=== PATIENT | female | born 1965 | race Caucasian/White ===

== ENCOUNTER 2019-06-21 11:58 | Outpatient (REF) | payer BC, SELFPAY ==
[2019-06-21 20:44] LABS: Anion Gap 13.9 mmol/L (3-11); BUN 6 mg/dL (7-18); CO2 25.1 mmol/L (21.0-32.0); CREATININE 0.58 mg/dL (0.55-1.02); Calcium 9.5 mg/dL (8.5-10.1); Calculated LDL 82 mg/dL (<100); Chloride 103 mmol/L (98-107); Cholesterol 225 mg/dL (<200); Glucose 83 mg/dL (74-106); HDL Cholesterol 106 mg/dL (40-60); Potassium 4.2 mmol/L (3.5-5.1); Sodium 142 mmol/L (136-145); Triglyceride 186 mg/dL (<150)
== END 2019-06-21 12:18 ==
LOC: NCHCN 11:58
PROVIDERS: PCP Internal Medicine; Visit Provider Internal Medicine
DX: R03.0 Elevated blood-pressure reading, without diagnosis of hypertension (principal); Z13.220 Encounter for screening for lipoid disorders
CPT/HCPCS: 80048; 80061

== ENCOUNTER 2019-06-27 16:57 | Outpatient (REF) | payer BC, SELFPAY ==
--- NOTE | 2019-06-27 16:10 | PAPFT_PTH ---
PATIENT: SAMANTHA HIDALGO LOC: [facility]#:[id number] AGE/SX: 53/F ROOM: RE06/27/[address]: Tammy Patino : 1965 BED: DIS: 06/27/2019 SPEC #: [id number] RECD: 06/28/19 12:59 STATUS: MABEL REQ #: [id number] RAMILA: 06/27/19 16:[address]: Tammy Patino DEPT: [facility] Cytology RECD BY: Anita Moncada ENTERED: 06/28/19 12:59 SP TYPE: PAPFT OTHR DR: Ed Naranjo Tissues: 1 - CX/ENDOCX FOR PAP SMEARS Procedures: PAP THIN PREP/[facility] Screening HPV DNA PROBE Comments: [id number]
== END 2019-06-27 17:17 ==
LOC: NCHCN 16:57
PROVIDERS: PCP Internal Medicine; Visit Provider Internal Medicine
DX: Z00.00 Encounter for general adult medical examination without abnormal findings (principal); Z12.4 Encounter for screening for malignant neoplasm of cervix; Z11.51 Encounter for screening for human papillomavirus (HPV)
CPT/HCPCS: 88142; 87624

== ENCOUNTER 2024-11-25 16:24 | Outpatient (REF) | payer MEDICAID, SELFPAY ==
[2024-11-25 21:46] LABS: HCT 40.8 % (36.0-46.0); HGB 13.5 g/dL (11.2-15.7); MCH 31.9 pg (27.0-33.0); MCHC 33.1 % (32.0-36.0); MCV 97 fL (80-95); MPV 10.8 fL (8.0-11.0); Platelet Count 323 10^3/uL (130-400); RBC 4.23 10^6/uL (3.93-5.22); RDW 13.2 % (11.7-14.6); RDW-SD 46.0 fL; WBC 8.55 10^3/uL (4.4-10.8)
[2024-11-25 22:02] LABS: ALT 27 U/L (14-59); AST 24 U/L (15-37); Albumin 4.3 g/dL (3.4-5.0); Alkaline Phosphatase 81 U/L (46-116); Anion Gap 8.4 mmol/L (3-11); BUN 7 mg/dL (7-18); Bilirubin, Total 0.3 mg/dL (0.2-1.0); CO2 28.6 mmol/L (21.0-32.0); Calcium 9.7 mg/dL (8.5-10.1); Calculated LDL 54 mg/dL (<100); Chloride 98 mmol/L (98-107); Cholesterol 189 mg/dL (<200); Estimated GFR 102.69 (mL/min/1.73m2); Glucose 108 mg/dL (74-106); HDL Cholesterol 115 mg/dL (>or=50); Magnesium 2.1 mg/dL (1.8-2.4); Potassium 4.6 mmol/L (3.5-5.1); Sodium 135 mmol/L (136-145); Total Protein 7.9 g/dL (6.4-8.2); Triglyceride 103 mg/dL (<150)
== END 2024-11-25 16:25 | disposition home or self-care (01) ==
LOC: NCHCN 16:24
PROVIDERS: PCP Internal Medicine; Visit Provider Internal Medicine
DX: I60.9 Nontraumatic subarachnoid hemorrhage, unspecified (principal); E83.42 Hypomagnesemia; Z13.220 Encounter for screening for lipoid disorders
CPT/HCPCS: 80053; 80061; 85027; 83735

== ENCOUNTER 2025-01-27 15:54 | Outpatient (REF) | payer MEDICAID, SELFPAY ==
--- NOTE | 2025-01-27 14:00 | PAPFT_PTH ---
PATIENT: SAMANTHA HIDALGO LOC: [facility]#:[id number] AGE/SX: 59/F ROOM: RE01/27/[address]: Tammy Patino : 1965 BED: DIS: 01/27/2025 SPEC #: [id number] RECD: 01/28/25 18:23 STATUS: MABEL RESherin #: [id number] RAMILA: 01/27/25 14:[address]: Tammy Patino DEPT: [facility] Cytology RECD BY: Anita Moncada ENTERED: 01/28/25 18:24 SP TYPE: PAPFT OTHR DR: Ed Naranjo Tissues: 1 - CX/ENDOCX FOR PAP SMEARS Procedures: PAP THIN PREP/[facility] Screening HPV DNA PROBE Comments: [id number] (HPV 16 & 18/45)
== END 2025-01-27 15:55 | disposition home or self-care (01) ==
LOC: NCHCN 15:54
PROVIDERS: PCP Internal Medicine; Visit Provider Internal Medicine
DX: Z12.4 Encounter for screening for malignant neoplasm of cervix (principal)
CPT/HCPCS: 88142; 87624